=== PATIENT | male | born 1975 | race Two or more races ===

== ENCOUNTER → 2023-09-05 | Outpatient (CLI) | payer OTHER ==
[~2023-09-05] MED LIST: IOHEXOL 300 MG/ML 100ML BOTTLE IJ ONE
[2023-09-05 09:25] LABS: Chloride 108 mmol/L (98-107); Potassium 4.5 mmol/L (3.5-5.1); Sodium 141 mmol/L (136-145)
[2023-09-05 09:26] LABS: Anion Gap 4 (5-15); Carbon Dioxide 29 mmol/L (20-30)
[2023-09-05 09:31] LABS: Blood Urea Nitrogen 13 mg/dL (9-23); Glucose 96 mg/dL (74-106)
== END | disposition home or self-care (01) ==
LOC: XYW 08:09
DX: K62.5 Hemorrhage of anus and rectum (principal); I10 Essential (primary) hypertension; K21.9 Gastro-esophageal reflux disease without esophagitis; R52 Pain, unspecified
CPT/HCPCS: 36415; 71275; 80048; Q9967